=== PATIENT | male | born 1955 | race Caucasian/White ===

== ENCOUNTER 2016-10-02 01:10 | Inpatient (IN) | payer MEDICARE, MEDICAID ==
[~2016-10-02] VITALS: Ht 172.7 cm; Wt 79.4 kg
[2016-10-02] VITALS (7 sets, daily range): BP systolic 101–142; BP diastolic 53–77
[2016-10-02] MEDS ORDERED: ACETAMINOPHEN325 M1 ORAL (01:13)
[2016-10-02] MEDS ORDERED: DEPAKOTE ER250 MG ORAL (01:13)
[2016-10-02] MEDS ORDERED: DOCUSATE SODIU100 MG ORAL (01:13)
[2016-10-02] MEDS ORDERED: NORCO 5-325 TA1 EACH ORAL (01:39)
[2016-10-02] MEDS ORDERED: MULTIVITAMINS1 EA13 ORAL (01:39)
[2016-10-02] MEDS ORDERED: VITAMIN C500 M1 ORAL (01:39)
[2016-10-02] MEDS ORDERED: VOLTAREN100 G1 TP (01:39)
[2016-10-02] MEDS ORDERED: DULCOLAX10 MG RC (01:39)
[2016-10-02] MEDS ORDERED: FOLIC ACID1 MG ORAL (01:39)
[2016-10-02] MEDS ORDERED: MILK OF MA400 MG/51 ORAL (01:39)
[2016-10-02] MEDS ORDERED: TEMAZEPAM30 MG ORAL (01:39)
[2016-10-02] MEDS ORDERED: PROSCAR5 MG ORAL (01:39)
[2016-10-02] MEDS ORDERED: FERROUS SULFAT325 MG ORAL (01:39)
[2016-10-02] MEDS ORDERED: TAMSULOSIN HCL0.4 MG ORAL (01:39)
[2016-10-02] MEDS ORDERED: LORAZEPAM1 MG ORAL (01:39)
[2016-10-02] MEDS ORDERED: SEROQUEL25 MG ORAL (01:39)
[2016-10-02] MEDS ORDERED: LIDODERM700 M1 TOPIC (01:39)
[2016-10-02] MEDS ORDERED: CITRACAL D + H1 EACH PO (01:39)
[2016-10-02] MEDS ORDERED: MIRALAX17 G2 ORAL (01:39)
[2016-10-02] MEDS ORDERED: VITAMIN B-1100 MG ORAL (01:39)
[2016-10-02 01:57] LABS: APPEARANCE,URINE CLEAR; KETONES,URINE NEGATIVE (NEGATIVE); LEUKOCYTE ESTERASE ,URINE NEGATIVE (NEGATIVE); NITRITE,URINE NEGATIVE (NEGATIVE); PH,URINE 6.5 (4.5-8.0); PROTEIN,URINE NEGATIVE (NEGATIVE); UROBILINOGEN,URINE 1 MG/DL (0.0-1.0)
[2016-10-02 01:57] LABS: MEAN CORPUSCULAR HEMOGLOBIN 30.6 PG (27.0-31.0); MEAN CORPUSCULAR HGB CONC 34.6 G/DL (32.0-36.0); MEAN CORPUSCULAR VOLUME 88 FL (80-99); MEAN PLATELET VOLUME 6.2 FL (6.5-10.1); PLATELET COUNT 56 K/UL (150-450); RED BLOOD COUNT 4.81 M/UL (4.70-6.10); RED CELL DISTRIBUTION WIDTH 12.8 % (11.6-14.8); WHITE BLOOD COUNT 3.1 K/UL (4.8-10.8)
[2016-10-02 02:06] LABS: INR 1.4 (0.9-1.1); PROTHROMBIN TIME 14.9 SEC (9.30-11.50)
[2016-10-02 02:10] LABS: ALANINE AMINOTRANSFERASE 49 U/L (3-41); ALBUMIN/GLOBULIN RATIO 0.9 (1.0-2.7); ANION GAP 14 (5-15); ASPARTATE AMINO TRANSFERASE 74 U/L (5-40); CALCIUM 9.1 mg/dL (8.6-10.2); CARBON DIOXIDE 25 mEQ/L (20-30); CHLORIDE 100 mEQ/L (98-107); CREATININE 0.7 mg/dL (0.7-1.2); GLOMERULAR FILTRATION RATE > 60 mL/min (>60); HEMOLYSIS 5; LIPASE 30 U/L (< 60); SODIUM 139 mEQ/L (135-145); TOTAL PROTEIN 7.6 g/dL (6.6-8.7)
[2016-10-02 02:20] LABS: CKMB 1.7 ng/mL (< 6.7)
[2016-10-02 02:31] LABS: BILIRUBIN,DIRECT 0.4 mg/dL (0.1-0.3)
--- NOTE | 2016-10-02 03:18 | Emergency Room Report ---
History of Present Illness General Chief Complaint: Abnormal Labs Source: Medical Record Present Illness HPI Patient presents with complaints of general weakness Denies any fevers or chills Denies any chest pressures of breath He reports decreased oral intake mild epigastric discomfort as well Denies any vomiting but has some mild nausea denies any diarrhea Denies any chest pain or shortness of breath Allergies: Coded Allergies: No Known Allergies (Unverified , 10/02/16) Patient History Past Medical History: see triage record Pertinent Family History: none Reviewed Nursing Documentation: PMH: Agreed, PSxH: Agreed Nursing Documentation-PMH History Of Psychiatric Problem: Yes - alcoholism, schizophrenia, depression Review of Systems All Other Systems: negative except mentioned in HPI Physical Exam Vital Signs Date Time Temp Pulse Resp B/P Pulse Ox O2 Delivery O2 Flow Rate FiO2 10/02/16 01:02 97.7 60 14 142/77 100 Room Air Sp02 EP Interpretation: reviewed, normal General Appearance: well appearing, no apparent distress Head: normocephalic, atraumatic Eyes: bilateral eye EOMI, bilateral eye PERRL ENT: hearing grossly normal, TMs + canals normal, uvula midline, dry mucus membranes Neck: full range of motion, supple, no meningismus, no bony tend Respiratory: lungs clear, normal breath sounds, no rhonchi, no respiratory distress, no retraction, no accessory muscle use Cardiovascular #1: normal peripheral pulses, regular rate, rhythm, no edema, no gallop, no JVD, no murmur Gastrointestinal: normal bowel sounds, non tender, soft, no mass, no organomegaly, non-distended, no guarding, no hernia, no pulsatile mass, no rebound Genitourinary: no CVA tenderness Musculoskeletal: normal inspection Neurologic: oriented x3, responsive, yarn skeins examiner III-XII nml as tested, motor strength/ tone normal, sensory intact Psychiatric: mood/affect normal Skin: normal color, no rash, warm/dry, palpation normal Lymphatic: normal inspection, no adenopathy Medical Decision Making Diagnostic Impression: Primary Impression: Leukopenia Additional Impression: Elevated transaminase level ER Course Patient presents with multiple differentials Blood work reveals leukopenia along with abnormal liver function test patient is on multiple medications and requires further inpatient evaluation Labs Test 10/02/16 01:25 10/02/16 01:45 White Blood Count 3.1 K/UL (4.8-10.8) Red Blood Count 4.81 M/UL (4.70-6.10) Hemoglobin 14.7 G/DL (14.2-18.0) Hematocrit 42.5 % (42.0-52.0) Mean Corpuscular Volume 88 FL (80-99) Mean Corpuscular Hemoglobin 30.6 PG (27.0-31.0) Mean Corpuscular Hemoglobin Concent 34.6 G/DL (32.0-36.0) Red Cell Distribution Width 12.8 % (11.6-14.8) Platelet Count 56 K/UL (150-450) Mean Platelet Volume 6.2 FL (6.5-10.1) Neutrophils (%) (Auto) % (45.0-75.0) Lymphocytes (%) (Auto) % (20.0-45.0) Monocytes (%) (Auto) % (1.0-10.0) Eosinophils (%) (Auto) % (0.0-3.0) Basophils (%) (Auto) % (0.0-2.0) Prothrombin Time 14.9 SEC (9.30-11.50) Prothromb Time International Ratio 1.4 (0.9-1.1) Activated Partial Thromboplast Time 32 SEC (23-33) Sodium Level 139 mEQ/L (135-145) Potassium Level 4.0 mEQ/L (3.4-4.9) Chloride Level 100 mEQ/L (98-107) Carbon Dioxide Level 25 mEQ/L (20-30) Anion Gap 14 (5-15) Blood Urea Nitrogen 13 mg/dL (7-23) Creatinine 0.7 mg/dL (0.7-1.2) Estimat Glomerular Filtration Rate > 60 mL/min (>60) Glucose Level 88 mg/dL (74-106) Lactic Acid Level 1.90 mmol/L (0.66-2.22) Calcium Level 9.1 mg/dL (8.6-10.2) Total Bilirubin 1.7 mg/dL (0.0-1.2) Direct Bilirubin 0.4 mg/dL (0.1-0.3) Aspartate Amino Transf (AST/SGOT) 74 U/L (5-40) Alanine Aminotransferase (ALT/SGPT) 49 U/L (3-41) Alkaline Phosphatase 70 U/L (40-129) Total Creatine Kinase 66 U/L (38-174) Creatine Kinase MB 1.7 ng/mL (< 6.7) Creatine Kinase MB Relative Index 2.5 Total Protein 7.6 g/dL (6.6-8.7) Albumin 3.7 g/dL (3.5-5.2) Globulin 3.9 g/dL Albumin/Globulin Ratio 0.9 (1.0-2.7) Lipase 30 U/L (< 60) Urine Color Yellow Urine Appearance Clear Urine pH 6.5 (4.5-8.0) Urine Specific [place] 1.015 (1.005-1.035) Urine Protein Negative (NEGATIVE) Urine Glucose (UA) Negative (NEGATIVE) Urine Ketones Negative (NEGATIVE) Urine Occult Blood Negative (NEGATIVE) Urine Nitrite Negative (NEGATIVE) Urine Bilirubin Negative (NEGATIVE) Urine Urobilinogen 1 MG/DL (0.0-1.0) Urine Leukocyte Esterase Negative (NEGATIVE) Rhythm Strip Diag. Results EP Interpretation: yes Rate: 67 Rhythm: NSR, no PVC's, no ectopy Chest X-Ray Diagnostic Results EP Interpretation: Yes Findings: no consolidation, no effusion, no pneumothorax Number of Views: 1 Last Vital Signs Date Time Temp Pulse Resp B/P Pulse Ox O2 Delivery O2 Flow Rate FiO2 10/02/16 01:20 97.7 84 14 142/77 100 Room Air Status: improved Disposition: ADMITTED INPATIENT Condition: Serious Referrals: Andie Feliz MD (PCP) ANDIE OCONNELL D.O. Oct 02, 2016 03:18
[2016-10-02 07:45] LABS: MEAN CORPUSCULAR HEMOGLOBIN 30.5 PG (27.0-31.0); MEAN CORPUSCULAR HGB CONC 34.3 G/DL (32.0-36.0); MEAN CORPUSCULAR VOLUME 89 FL (80-99); MEAN PLATELET VOLUME 9.5 FL (6.5-10.1); PLATELET COUNT 50 K/UL (150-450); RED BLOOD COUNT 4.93 M/UL (4.70-6.10); RED CELL DISTRIBUTION WIDTH 13.1 % (11.6-14.8); WHITE BLOOD COUNT 2.9 K/UL (4.8-10.8)
[2016-10-02 08:05] LABS: ALANINE AMINOTRANSFERASE 51 U/L (3-41); ALBUMIN/GLOBULIN RATIO 0.9 (1.0-2.7); ANION GAP 14 (5-15); ASPARTATE AMINO TRANSFERASE 76 U/L (5-40); CALCIUM 8.9 mg/dL (8.6-10.2); CARBON DIOXIDE 23 mEQ/L (20-30); CHLORIDE 101 mEQ/L (98-107); CREATININE 0.6 mg/dL (0.7-1.2); GLOMERULAR FILTRATION RATE > 60 mL/min (>60); HEMOLYSIS 5; POTASSIUM 3.9 mEQ/L (3.4-4.9); SODIUM 138 mEQ/L (135-145); TOTAL PROTEIN 7.2 g/dL (6.6-8.7)
[2016-10-02 08:12] LABS: BASOPHILS % (MANUAL) 2 % (0-2); EOSINOPHILS % (MANUAL) 9 % (0-3); LYMPHOCYTES % (MANUAL) 40 % (20-45); NEUTROPHILS % (MANUAL) 36 % (45-75); TOTAL CELLS COUNTED 100
[2016-10-02 08:13] LABS: BAND NEUTROPHILS % (MANUAL) 0 % (0-8); PLATELET ESTIMATE DECREASED; PLATELET MORPHOLOGY NORMAL
[2016-10-02 08:18] LABS: BILIRUBIN,DIRECT 0.4 mg/dL (0.1-0.3)
--- NOTE | 2016-10-02 11:13 | Diagnostic Imaging Report ---
Indication: Chest pain Technique: One view of the chest Comparison: none Findings: The heart is borderline enlarged. Aorta is tortuous. Lungs and pleural spaces are clear. Impression: Borderline cardiomegaly. No acute process This agrees with the preliminary interpretation provided by the emergency room physician
--- NOTE | 2016-10-02 11:23 | GI Initial Consult Note ---
AubreeArchana Vangoi N.PDaniela 10/02/16 1123: History of Present Illness General Date patient seen: Oct 02, 2016 Time patient seen: 11:15 Reason for Hospitalization: Abnormal Labs Referring physician: PAMELA DHILLON Reason for Consultation: ABDOMINAL PAIN Present Illness HPI Patient presents with complaints of general weakness Denies any fevers or chills Denies any chest pressures of breath He reports decreased oral intake mild epigastric discomfort as well Denies any vomiting but has some mild nausea denies any diarrhea Denies any chest pain or shortness of breath GI CONSULT. HPI as noted above. GI consulted for abdominal pain and transaminitis. Pt seen on floor, awake A&Ox4 NAD with no active s/sx of N/V/D. C/o of occasional epigastrict pain and constipation no BM x 3 days. The stated his last colonoscopy was approximately 6 months ago with unremarkable results. He presents today with leukopenia and transaminitis. Lipase unremarkable. Home Meds Reported Medications Diclofenac Sodium (VOLTAREN) 100 Gm Gel..gram., 100 GM TP, GM 10/02/16 Ascorbic Acid* (VITAMIN C*) 500 Mg Tablet, 500 MG ORAL DAILY, #30 TAB 0 Refills 10/02/16 Thiamine Hcl* (VITAMIN B-1*) 100 Mg Tablet, 100 MG ORAL DAILY, #30 TAB 0 Refills 10/02/16 Temazepam* (TEMAZEPAM*) 30 Mg Capsule, 15 MG ORAL BEDTIME Y for Insomnia, CAP 10/02/16 Quetiapine Fumarate* (SEROQUEL*) 25 Mg Tablet, 50 MG ORAL BEDTIME, TAB 10/02/16 Finasteride* (PROSCAR*) 5 Mg Tablet, 5 MG ORAL DAILY, #30 TAB 0 Refills 10/02/16 Calcium Carb&Cit/D3/Phytostrol (CITRACAL D + HEART HEALTH TAB) 1 Each Tablet, 1 EACH PO, TAB 10/02/16 Hydrocodone Bit/Acetaminophen 5-325* (NORCO 5-325*) 1 Each Tablet, 1 TAB ORAL Q4H Y for For Pain, TAB 0 Refills 10/02/16 Multivitamin with Minerals (Multivitamins with Minerals) 1 Each Tablet, 1 TAB ORAL DAILY, TAB 10/02/16 Polyethylene Glycol 3350* (MIRALAX*) 17 Gm Powd.pack, 17 GM ORAL DAILY, PACKET 10/02/16 Magnesium Hydroxide* (MILK OF MAGNESIA*) 400 Mg/5 Ml Oral.susp, 30 ML ORAL DAILY , ML 10/02/16 Lorazepam* (LORAZEPAM*) 1 Mg Tablet, 1 MG ORAL THREE TIMES A DAY, TAB 10/02/16 Lidocaine (Lidoderm) 1 Each Adh..patch, 1 PATCH TOPIC, #7 PATCH 0 Refills Patch(es) may remain in place for up to 12 hours in any 24-hour period. 10/02/16 Folic Acid* (FOLIC ACID*) 1 Mg Tablet, 1 MG ORAL DAILY, TAB 10/02/16 Tamsulosin Hcl (TAMSULOSIN HCL*) 0.4 Mg Cap.er.24h, 0.4 MG ORAL BEDTIME, CAP 10/02/16 Ferrous Sulfate* (FERROUS SULFATE*) 325 Mg Tablet, 325 MG ORAL TWICE A DAY, #60 TAB 0 Refills 10/02/16 Bisacodyl (DULCOLAX) 10 Mg Supp.rect, 10 MG RC, SUPP 10/02/16 Docusate Sodium* (DOCUSATE SODIUM*) 100 Mg Capsule, 100 MG ORAL TWICE A DAY, CAP 10/02/16 Divalproex Sodium* (DEPAKOTE ER*) 250 Mg Tab.er.24h, 250 MG ORAL EVERY 12 HOURS , TAB 10/02/16 Acetaminophen* (ACETAMINOPHEN 325MG TABLET*) 325 Mg Tablet, 650 MG ORAL Q6H Y for Mild Pain (Pain Scale 1-3), TAB 10/02/16 Med list reviewed/reconciled: Yes Allergies: Coded Allergies: No Known Allergies (Unverified , 10/02/16) Patient History History Provided By: Patient, Medical Record [facility] Narrative History Of Psychiatric Problem: Yes - alcoholism, schizophrenia, depression Social History: Reports: alcohol use - been sober for 3 months, ETOH abuse Review of Systems All Other Systems: negative except mentioned in HPI Physical Exam Vital Signs Date Time Temp Pulse Resp B/P Pulse Ox O2 Delivery O2 Flow Rate FiO2 10/02/16 01:02 97.7 60 14 142/77 100 Room Air Sp02 EP Interpretation: reviewed Labs Laboratory Tests Test 10/02/16 01:25 10/02/16 01:45 10/02/16 07:25 White Blood Count 3.1 K/UL (4.8-10.8) L 2.9 K/UL (4.8-10.8) L Red Blood Count 4.81 M/UL (4.70-6.10) 4.93 M/UL (4.70-6.10) Hemoglobin 14.7 G/DL (14.2-18.0) 15.0 G/DL (14.2-18.0) Hematocrit 42.5 % (42.0-52.0) 43.8 % (42.0-52.0) Mean Corpuscular Volume 88 FL (80-99) 89 FL (80-99) Mean Corpuscular Hemoglobin 30.6 PG (27.0-31.0) 30.5 PG (27.0-31.0) Mean Corpuscular Hemoglobin Concent 34.6 G/DL (32.0-36.0) 34.3 G/DL (32.0-36.0) Red Cell Distribution Width 12.8 % (11.6-14.8) 13.1 % (11.6-14.8) Platelet Count 56 K/UL (150-450) L 50 K/UL (150-450) L Mean Platelet Volume 6.2 FL (6.5-10.1) L 9.5 FL (6.5-10.1) Neutrophils (%) (Auto) % (45.0-75.0) % (45.0-75.0) Lymphocytes (%) (Auto) % (20.0-45.0) % (20.0-45.0) Monocytes (%) (Auto) % (1.0-10.0) % (1.0-10.0) Eosinophils (%) (Auto) % (0.0-3.0) % (0.0-3.0) Basophils (%) (Auto) % (0.0-2.0) % (0.0-2.0) Prothrombin Time 14.9 SEC (9.30-11.50) H Prothromb Time International Ratio 1.4 (0.9-1.1) H Activated Partial Thromboplast Time 32 SEC (23-33) Sodium Level 139 mEQ/L (135-145) 138 mEQ/L (135-145) Potassium Level 4.0 mEQ/L (3.4-4.9) 3.9 mEQ/L (3.4-4.9) Chloride Level 100 mEQ/L (98-107) 101 mEQ/L (98-107) Carbon Dioxide Level 25 mEQ/L (20-30) 23 mEQ/L (20-30) Anion Gap 14 (5-15) 14 (5-15) Blood Urea Nitrogen 13 mg/dL (7-23) 13 mg/dL (7-23) Creatinine 0.7 mg/dL (0.7-1.2) 0.6 mg/dL (0.7-1.2) L Estimat Glomerular Filtration Rate > 60 mL/min (>60) > 60 mL/min (>60) Glucose Level 88 mg/dL (74-106) 106 mg/dL (74-106) Lactic Acid Level 1.90 mmol/L (0.66-2.22) Calcium Level 9.1 mg/dL (8.6-10.2) 8.9 mg/dL (8.6-10.2) Total Bilirubin 1.7 mg/dL (0.0-1.2) H 2.2 mg/dL (0.0-1.2) H Direct Bilirubin 0.4 mg/dL (0.1-0.3) H 0.4 mg/dL (0.1-0.3) H Aspartate Amino Transf (AST/SGOT) 74 U/L (5-40) H 76 U/L (5-40) H Alanine Aminotransferase (ALT/SGPT) 49 U/L (3-41) H 51 U/L (3-41) H Alkaline Phosphatase 70 U/L (40-129) 64 U/L (40-129) Total Creatine Kinase 66 U/L (38-174) Creatine Kinase MB 1.7 ng/mL (< 6.7) Creatine Kinase MB Relative Index 2.5 Total Protein 7.6 g/dL (6.6-8.7) 7.2 g/dL (6.6-8.7) Albumin 3.7 g/dL (3.5-5.2) 3.5 g/dL (3.5-5.2) Globulin 3.9 g/dL 3.7 g/dL Albumin/Globulin Ratio 0.9 (1.0-2.7) L 0.9 (1.0-2.7) L Lipase 30 U/L (< 60) Urine Color Yellow Urine Appearance Clear Urine pH 6.5 (4.5-8.0) Urine Specific [place] 1.015 (1.005-1.035) Urine Protein Negative (NEGATIVE) Urine Glucose (UA) Negative (NEGATIVE) Urine Ketones Negative (NEGATIVE) Urine Occult Blood Negative (NEGATIVE) Urine Nitrite Negative (NEGATIVE) Urine Bilirubin Negative (NEGATIVE) Urine Urobilinogen 1 MG/DL (0.0-1.0) H Urine Leukocyte Esterase Negative (NEGATIVE) Differential Total Cells Counted 100 Neutrophils % (Manual) 36 % (45-75) L Lymphocytes % (Manual) 40 % (20-45) Monocytes % (Manual) 13 % (1-10) H Eosinophils % (Manual) 9 % (0-3) H Basophils % (Manual) 2 % (0-2) Band Neutrophils 0 % (0-8) Platelet Estimate Decreased L Platelet Morphology Normal Red Blood Cell Morphology Normal General Appearance: well appearing, no apparent distress, alert Head: normocephalic EENT: normal ENT inspection Neck: supple Respiratory: normal breath sounds, no respiratory distress Cardiovascular: normal rate Gastrointestinal: soft, normal bowel sounds, tenderness - generalized Rectal: deferred Genitourinary: no CVA tenderness Musculoskeletal: back normal Neurologic: normal inspection, alert, oriented x3, responsive Psychiatric: normal inspection, judgement/insight normal Skin: normal inspection, normal color, no rash, warm/dry, palpation normal Lymphatic: normal inspection, no adenopathy Current Medications Current Medications Medications (Trade) Dose Ordered Sig/[place] Route PRN Reason Start Time Stop Time Status Last Admin Dose Admin Acetaminophen (Tylenol) 650 mg Q4H PRN ORAL Mild Pain/Temp > 100.5 10/02/16 03:30 11/01/16 03:29 Tbo-Filgrastim (Granix) 300 mcg ONCE ONCE SQ 10/02/16 12:30 10/02/16 12:31 GI: Plan Problems: (1) History of ETOH abuse (2) Elevated transaminase level (3) Leukopenia Plan ordered abdominal U/S repeat LFTs monitor H&H, transfuse prn bowel regime >> colace + miralax regular diet ppi fu hep panel fu labs Discussed with Dr. Rodriguez. Thank you for referring this patient, we will follow. RADHA RODRIGUEZ 10/03/16 1153: History of Present Illness General Reason for Hospitalization: Abnormal Labs Present Illness Home Meds Reported Medications Diclofenac Sodium (VOLTAREN) 100 Gm Gel..gram., 100 GM TP, GM 10/02/16 Ascorbic Acid* (VITAMIN C*) 500 Mg Tablet, 500 MG ORAL DAILY, #30 TAB 0 Refills 10/02/16 Thiamine Hcl* (VITAMIN B-1*) 100 Mg Tablet, 100 MG ORAL DAILY, #30 TAB 0 Refills 10/02/16 Temazepam* (TEMAZEPAM*) 30 Mg Capsule, 15 MG ORAL BEDTIME Y for Insomnia, CAP 10/02/16 Quetiapine Fumarate* (SEROQUEL*) 25 Mg Tablet, 50 MG ORAL BEDTIME, TAB 10/02/16 Finasteride* (PROSCAR*) 5 Mg Tablet, 5 MG ORAL DAILY, #30 TAB 0 Refills 10/02/16 Calcium Carb&Cit/D3/Phytostrol (CITRACAL D + HEART HEALTH TAB) 1 Each Tablet, 1 EACH PO, TAB 10/02/16 Hydrocodone Bit/Acetaminophen 5-325* (NORCO 5-325*) 1 Each Tablet, 1 TAB ORAL Q4H Y for For Pain, TAB 0 Refills 10/02/16 Multivitamin with Minerals (Multivitamins with Minerals) 1 Each Tablet, 1 TAB ORAL DAILY, TAB 10/02/16 Polyethylene Glycol 3350* (MIRALAX*) 17 Gm Powd.pack, 17 GM ORAL DAILY, PACKET 10/02/16 Magnesium Hydroxide* (MILK OF MAGNESIA*) 400 Mg/5 Ml Oral.susp, 30 ML ORAL DAILY , ML 10/02/16 Lorazepam* (LORAZEPAM*) 1 Mg Tablet, 1 MG ORAL THREE TIMES A DAY, TAB 10/02/16 Lidocaine (Lidoderm) 1 Each Adh..patch, 1 PATCH TOPIC, #7 PATCH 0 Refills Patch(es) may remain in place for up to 12 hours in any 24-hour period. 10/02/16 Folic Acid* (FOLIC ACID*) 1 Mg Tablet, 1 MG ORAL DAILY, TAB 10/02/16 Tamsulosin Hcl (TAMSULOSIN HCL*) 0.4 Mg Cap.er.24h, 0.4 MG ORAL BEDTIME, CAP 10/02/16 Ferrous Sulfate* (FERROUS SULFATE*) 325 Mg Tablet, 325 MG ORAL TWICE A DAY, #60 TAB 0 Refills 10/02/16 Bisacodyl (DULCOLAX) 10 Mg Supp.rect, 10 MG RC, SUPP 10/02/16 Docusate Sodium* (DOCUSATE SODIUM*) 100 Mg Capsule, 100 MG ORAL TWICE A DAY, CAP 10/02/16 Divalproex Sodium* (DEPAKOTE ER*) 250 Mg Tab.er.24h, 250 MG ORAL EVERY 12 HOURS , TAB 10/02/16 Acetaminophen* (ACETAMINOPHEN 325MG TABLET*) 325 Mg Tablet, 650 MG ORAL Q6H Y for Mild Pain (Pain Scale 1-3), TAB 10/02/16 Allergies: Coded Allergies: No Known Allergies (Unverified , 10/02/16) GI: Plan Plan The patient was seen and examined at bedside and all new and available data was reviewed in the patients chart. I agree with the above findings, impression and plan. (Patient seen earlier today. Signature stamp does not reflect patient encounter time.). -Angelia Singer MDh Rip Benedict Oct 02, 2016 11:23 RADHA RODRIGUEZ Oct 03, 2016 11:53
[2016-10-02] MEDS ORDERED: TBO-Filgrastim 300 mcg/0.5ml SQ ONE (12:30)
[2016-10-02] MEDS: Docusate 100mg cap ORAL SCH (18:01)
[2016-10-02] MEDS: Miralax 17gm pkt ORAL SCH (21:24)
--- NOTE | 2016-10-02 22:57 | Consultation ---
Consult Note Consult Note Heme Consult DOS: 10/02/16 REQ MD: Trini [facility]: Leukopenia eval HPI 60 y old male has been admitted in the past to PSYCHIATRIC (04/2016 and 07/2016) hx of splenomegaly, cirrhosis, has leukopenia and thrombocytopenia history due to hepatitis C, presents with complaints of general weakness, he denies any fevers or chills, denies any chest pressures of breath, he reports decreased oral intake mild epigastric discomfort as well, denies any vomiting but has some mild nausea denies any diarrhea, denies any chest pain or shortness of breath, had a colo 6 mo ago, unremarkable. Home Meds Diclofenac Sodium (VOLTAREN) 100 Gm Gel..gram., 100 GM TP, GM Ascorbic Acid* (VITAMIN C*) 500 Mg Tablet, 500 MG ORAL DAILY, #30 TAB 0 Refills Thiamine Hcl* (VITAMIN B-1*) 100 Mg Tablet, 100 MG ORAL DAILY, #30 TAB 0 Refills Temazepam* (TEMAZEPAM*) 30 Mg Capsule, 15 MG ORAL BEDTIME Y for Insomnia, CAP Quetiapine Fumarate* (SEROQUEL*) 25 Mg Tablet, 50 MG ORAL BEDTIME, TAB Finasteride* (PROSCAR*) 5 Mg Tablet, 5 MG ORAL DAILY, #30 TAB 0 Refills Calcium Carb&Cit/D3/Phytostrol (CITRACAL D + HEART HEALTH TAB) 1 Each Tablet, 1 EACH PO, TAB Hydrocodone Bit/Acetaminophen 5-325* (NORCO 5-325*) 1 Each Tablet, 1 TAB ORAL Q4H Y for For Pain, TAB 0 Refills Multivitamin with Minerals (Multivitamins with Minerals) 1 Each Tablet, 1 TAB ORAL DAILY, TAB Polyethylene Glycol 3350* (MIRALAX*) 17 Gm Powd.pack, 17 GM ORAL DAILY, PACKET Magnesium Hydroxide* (MILK OF MAGNESIA*) 400 Mg/5 Ml Oral.susp, 30 ML ORAL DAILY , ML Lorazepam* (LORAZEPAM*) 1 Mg Tablet, 1 MG ORAL THREE TIMES A DAY, TAB Lidocaine (Lidoderm) 1 Each Adh..patch, 1 PATCH TOPIC, #7 PATCH 0 Refills Folic Acid* (FOLIC ACID*) 1 Mg Tablet, 1 MG ORAL DAILY, TAB Tamsulosin Hcl (TAMSULOSIN HCL*) 0.4 Mg Cap.er.24h, 0.4 MG ORAL BEDTIME, CAP Ferrous Sulfate* (FERROUS SULFATE*) 325 Mg Tablet, 325 MG ORAL TWICE A DAY, #60 TAB 0 Refills Bisacodyl (DULCOLAX) 10 Mg Supp.rect, 10 MG RC, SUPP Docusate Sodium* (DOCUSATE SODIUM*) 100 Mg Capsule, 100 MG ORAL TWICE A DAY, CAP Divalproex Sodium* (DEPAKOTE ER*) 250 Mg Tab.er.24h, 250 MG ORAL EVERY 12 HOURS , TAB Acetaminophen* (ACETAMINOPHEN 325MG TABLET*) 325 Mg Tablet, 650 MG ORAL Q6H Y for Mild Pain (Pain Scale 1-3), TAB Allergies: No Known Allergies (Unverified , 10/02/16) PMH Narrative Psychiatric Problem: Yes - alcoholism, schizophrenia, depression Social History: Reports: alcohol use - been sober for 3 months, ETOH abuse ROS: Constitutional: No fever, no chills, no night sweats, no fatigue Skin: No rashes, lumps, itchiness, dryness HEENT: No [place], ear ache, visual changes, double vision, nosebleeds, sore throat, lumps, swollen glands Breasts: No lumps, pain, discharge Pulmonary: No cough, sputum, shortness of breath, coughing up blood, hemoptysis Cardiovascular: No chest pain, tightness, palpitations, syncope, claudication, orthopnea, PND GI: No nausea, vomiting, diarrhea, melena, hematochezia, change in appetite, abdominal pain : No dysuria, frequency, urgency, urinary incontinence, foamy urine Musculoskeletal: No joint swelling or muscle pain, trauma, back pain Neurologic: No dizziness, fainting, seizures, changes in smell or taste Psychiatric: No nervousness, stress, or depression, anxiety, hallucinations PE: Vitals: stable, are wnl General Appearance: A+O x3, NAD Skin: no rashes, itching HEENT: normocephalic, atraumatic Respiratory/Chest: chest wall non-tender, lungs clear Cardiovascular/Chest: normal peripheral pulses, normal rate Abdomen: normal bowel sounds, non tender Ext: no cce Test 10/02/16 01:25 10/02/16 01:45 10/02/16 07:25 White Blood Count 3.1 K/UL (4.8-10.8) L 2.9 K/UL (4.8-10.8) L Red Blood Count 4.81 M/UL (4.70-6.10) 4.93 M/UL (4.70-6.10) Hemoglobin 14.7 G/DL (14.2-18.0) 15.0 G/DL (14.2-18.0) Hematocrit 42.5 % (42.0-52.0) 43.8 % (42.0-52.0) Mean Corpuscular Volume 88 FL (80-99) 89 FL (80-99) Mean Corpuscular Hemoglobin 30.6 PG (27.0-31.0) 30.5 PG (27.0-31.0) Mean Corpuscular Hemoglobin Concent 34.6 G/DL (32.0-36.0) 34.3 G/DL (32.0-36.0) Red Cell Distribution Width 12.8 % (11.6-14.8) 13.1 % (11.6-14.8) Platelet Count 56 K/UL (150-450) L 50 K/UL (150-450) L Mean Platelet Volume 6.2 FL (6.5-10.1) L 9.5 FL (6.5-10.1) Neutrophils (%) (Auto) % (45.0-75.0) % (45.0-75.0) Lymphocytes (%) (Auto) % (20.0-45.0) % (20.0-45.0) Monocytes (%) (Auto) % (1.0-10.0) % (1.0-10.0) Eosinophils (%) (Auto) % (0.0-3.0) % (0.0-3.0) Basophils (%) (Auto) % (0.0-2.0) % (0.0-2.0) Prothrombin Time 14.9 SEC (9.30-11.50) H Prothromb Time International Ratio 1.4 (0.9-1.1) H Activated Partial Thromboplast Time 32 SEC (23-33) Sodium Level 139 mEQ/L (135-145) 138 mEQ/L (135-145) Potassium Level 4.0 mEQ/L (3.4-4.9) 3.9 mEQ/L (3.4-4.9) Chloride Level 100 mEQ/L (98-107) 101 mEQ/L (98-107) Carbon Dioxide Level 25 mEQ/L (20-30) 23 mEQ/L (20-30) Anion Gap 14 (5-15) 14 (5-15) Blood Urea Nitrogen 13 mg/dL (7-23) 13 mg/dL (7-23) Creatinine 0.7 mg/dL (0.7-1.2) 0.6 mg/dL (0.7-1.2) L Estimat Glomerular Filtration Rate > 60 mL/min (>60) > 60 mL/min (>60) Glucose Level 88 mg/dL (74-106) 106 mg/dL (74-106) Lactic Acid Level 1.90 mmol/L (0.66-2.22) Calcium Level 9.1 mg/dL (8.6-10.2) 8.9 mg/dL (8.6-10.2) Total Bilirubin 1.7 mg/dL (0.0-1.2) H 2.2 mg/dL (0.0-1.2) H Direct Bilirubin 0.4 mg/dL (0.1-0.3) H 0.4 mg/dL (0.1-0.3) H Aspartate Amino Transf (AST/SGOT) 74 U/L (5-40) H 76 U/L (5-40) H Alanine Aminotransferase (ALT/SGPT) 49 U/L (3-41) H 51 U/L (3-41) H Alkaline Phosphatase 70 U/L (40-129) 64 U/L (40-129) Total Creatine Kinase 66 U/L (38-174) Creatine Kinase MB 1.7 ng/mL (< 6.7) Creatine Kinase MB Relative Index 2.5 Total Protein 7.6 g/dL (6.6-8.7) 7.2 g/dL (6.6-8.7) Albumin 3.7 g/dL (3.5-5.2) 3.5 g/dL (3.5-5.2) Globulin 3.9 g/dL 3.7 g/dL Albumin/Globulin Ratio 0.9 (1.0-2.7) L 0.9 (1.0-2.7) L Lipase 30 U/L (< 60) Urine Color Yellow Urine Appearance Clear Urine pH 6.5 (4.5-8.0) Urine Specific [place] 1.015 (1.005-1.035) Urine Protein Negative (NEGATIVE) Urine Glucose (UA) Negative (NEGATIVE) Urine Ketones Negative (NEGATIVE) Urine Occult Blood Negative (NEGATIVE) Urine Nitrite Negative (NEGATIVE) Urine Bilirubin Negative (NEGATIVE) Urine Urobilinogen 1 MG/DL (0.0-1.0) H Urine Leukocyte Esterase Negative (NEGATIVE) Differential Total Cells Counted 100 Neutrophils % (Manual) 36 % (45-75) L Lymphocytes % (Manual) 40 % (20-45) Monocytes % (Manual) 13 % (1-10) H Eosinophils % (Manual) 9 % (0-3) H Basophils % (Manual) 2 % (0-2) Band Neutrophils 0 % (0-8) Platelet Estimate Decreased L Platelet Morphology Normal Red Blood Cell Morphology Normal Current Medications Medications (Trade) Dose Ordered Sig/[place]hal Route PRN Reason Start Time Stop Time Status Last Admin Dose Admin Acetaminophen (Tylenol) 650 mg Q4H PRN ORAL Mild Pain/Temp > 100.5 10/02/16 03:30 11/01/16 03:29 Tbo-Filgrastim (Granix) 300 mcg ONCE ONCE SQ 10/02/16 12:30 10/02/16 12:31 Assessment/Recs: # 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
--- NOTE | 2016-10-02 23:01 | History and Physical Report ---
DATE OF ADMISSION: 10/02/2016 HISTORY OF PRESENT ILLNESS: The patient is seen for elevated lipids, leukopenia, elevated transaminase. The patient is a poor historian. The patient denies any bleeding. Denies nausea, vomiting, or diarrhea. No fever or chills. No abdominal pain. Denies shortness of breath. Denies cough. Denies orthopnea or hemoptysis. PAST MEDICAL HISTORY: Psychosis, GERD, constipation, BPH, and chronic renal syndrome. PAST SURGICAL HISTORY: Denies. MEDICATIONS: Vitamin C, Tylenol, Depakote, Colace, ferrous sulfate, finasteride, folic acid, lorazepam, polyethylene glycol, Seroquel, Flomax, and thiamine. ALLERGIES: No known allergies. SOCIAL HISTORY: The patient does have history of smoking and history of alcohol use. REVIEW OF SYSTEMS: HEENT: Denies headaches. Respiratory: Denies shortness of breath. Denies cough. Cardiovascular: Denies chest pain. GI: Denies nausea, vomiting, or diarrhea. Extremities: Does have chronic pain. ORDER DISPATCHER CHIEF: Denies change in vision or speech pattern. PHYSICAL EXAMINATION: VITAL SIGNS: Temperature is 97.7 degrees, pulse 84, and blood pressure 132/77. HEENT: PERRLA. NECK: Supple. No lymphadenopathy. CHEST: Clear to auscultation. GI: Soft, nontender, and nondistended. No organomegaly. EXTREMITIES: No edema. Moves all four extremities. NEUROLOGIC: Sensation intact to light touch. Reflexes are equal on both sides. Oriented x1. LABORATORY DATA: WBC of 3.1, hemoglobin of 13.2, and platelets of 56,000. Sodium 139, potassium 4, BUN of 13, and creatinine of 0.7. Glucose of 88. AST of 74 and ALT of 49. Total bilirubin 1.7. ASSESSMENT: 1. Leukopenia. 2. Thrombocytopenia. 3. Transaminase elevation. 4. Psychiatric patient. PLAN: I have asked Dr. Godinez, Dr. Whalen, Dr. Ingram, and Dr. Edwards to see the patient for the above-mentioned diagnoses and treatment. Andie Feliz M.D. DR: MONIQUE JOB#: [id number] CC:
[2016-10-03] VITALS: BP 118/74
--- NOTE | 2016-10-03 | Consultation ---
DATE OF CONSULTATION: 10/02/2016 HISTORY OF PRESENT ILLNESS: This is a 60-year-old male with a history of multiple medical problems, including leukopenia, history of alcohol abuse and elevated transaminase level, who has been admitted to the hospital. The patient was admitted to the ER with chief complaints of general weakness, fatigued, decreased appetite and mild epigastric pain. The patient also has a history of depression who has been treated with Seroquel as well as anxiolytics and mood stabilizer. During the evaluation, the patient endorses anxiety, decreased energy, depressed mood, anhedonia, and worthlessness. PAST PSYCHIATRIC HISTORY: Diagnosed with depression, anxiety and mood disorder. PAST MEDICAL HISTORY: Significant for leukopenia and abnormal liver enzymes. ALLERGIES: No known drug allergies. SUBSTANCE ABUSE HISTORY: Significant for alcohol possible use. MENTAL STATUS EXAMINATION: The patient is alert and oriented x4. Mood is depressed. Affect is constricted. Thought process is concrete. Thought content, no suicidal or homicidal ideation. ASSESSMENT: 1. Mood disorder, not otherwise specified. 2. Alcohol dependence. 3. Alcohol withdrawal. PLAN: 1. We will start the patient on thiamine. 2. Folic acid. 3. We will start the patient on Valium as needed. 4. We will start the patient on Seroquel and fluoxetine. Ania Edwards M.D. DR: DAYSI JOB#: [id number] CC:
[2016-10-03 04:00] VITALS: BP 123/74
[2016-10-03 07:06] LABS: MEAN CORPUSCULAR HEMOGLOBIN 31.4 PG (27.0-31.0); MEAN CORPUSCULAR HGB CONC 35.4 G/DL (32.0-36.0); MEAN CORPUSCULAR VOLUME 89 FL (80-99); MEAN PLATELET VOLUME 7.9 FL (6.5-10.1); PLATELET COUNT 45 K/UL (150-450); RED BLOOD COUNT 4.37 M/UL (4.70-6.10); RED CELL DISTRIBUTION WIDTH 12.9 % (11.6-14.8)
[2016-10-03 07:14] LABS: ALANINE AMINOTRANSFERASE 45 U/L (3-41); ALBUMIN/GLOBULIN RATIO 0.9 (1.0-2.7); ANION GAP 15 (5-15); ASPARTATE AMINO TRANSFERASE 66 U/L (5-40); CALCIUM 8.8 mg/dL (8.6-10.2); CARBON DIOXIDE 23 mEQ/L (20-30); CHLORIDE 101 mEQ/L (98-107); CREATININE 0.6 mg/dL (0.7-1.2); GLOMERULAR FILTRATION RATE > 60 mL/min (>60); HEMOLYSIS 4; POTASSIUM 3.7 mEQ/L (3.4-4.9); SODIUM 139 mEQ/L (135-145)
[2016-10-03 07:32] LABS: BILIRUBIN,DIRECT 0.3 mg/dL (0.1-0.3)
[2016-10-03 07:53] LABS: BAND NEUTROPHILS % (MANUAL) 3 % (0-8); BASOPHILS % (MANUAL) 0 % (0-2); EOSINOPHILS % (MANUAL) 2 % (0-3); LYMPHOCYTES % (MANUAL) 13 % (20-45); NEUTROPHILS % (MANUAL) 72 % (45-75); PLATELET ESTIMATE DECREASED; PLATELET MORPHOLOGY NORMAL; TOTAL CELLS COUNTED 100
[2016-10-03 08:02] VITALS: BP 139/85
[2016-10-03] MEDS: Docusate 100mg cap ORAL SCH ×2 (08:13→17:29)
[2016-10-03] MEDS: Pantoprazole Inj IVP SCH (08:14)
--- NOTE | 2016-10-03 09:44 | Diagnostic Imaging Report ---
Indication: Abnormal liver function tests and renal function tests. Elevated lipase Technique: Baker-scale and duplex images of the upper abdomen were obtained Comparison: None Findings: Gallbladder demonstrates gallstones. No gallbladder wall thickening or pericholecystic fluid . Sonographic Garay's sign is negative. Common bile duct measures 4 mm in diameter. No intrahepatic biliary ductal dilatation. Liver demonstrates increased and coarsened echogenicity. It also demonstrates surface nodularity and irregularity. A few small cysts are seen within the right hepatic lobe. Portal vein and hepatic veins are patent. Pancreas is obscured by bowel gas. The spleen is enlarged, measuring 16 cm long axis dimension Left kidney measures 13 cm in length. Right kidney measures 10.5 cm length. Both kidneys demonstrate normal echogenicity. There is no hydronephrosis. There is a 12 mm lower pole cysts. There also appears to be a calcification within the lower pole renal sinus measuring approximately 9 mm diameter. Abdominal aorta is partially obscured by bowel gas, visualized portions are non-aneurysmal . Impression: Cholelithiasis. Negative for dilated ducts Coarsened hepatic echogenicity, surface irregularity and nodularity, consistent with cirrhosis Splenomegaly, suspect portal hypertension as etiology Incidental finding small hepatic cysts Probable nonobstructive left lower pole intrarenal calculus Incidental finding small left renal cyst Note inability to visualize the pancreas and distal abdominal aorta
--- NOTE | 2016-10-03 10:19 | GI Progress Note ---
Assessment/Plan Problems: (1) Elevated transaminase level ICD Codes: R74.0 - Nonspecific elevation of levels of transaminase and lactic acid dehydrogenase [LDH] SNOMED: 021893636, 129167640 (2) Leukopenia ICD Codes: D72.819 - Decreased white blood cell count, unspecified SNOMED: 64062428, 446667914 (3) History of ETOH abuse ICD Codes: Z87.898 - Personal history of other specified conditions SNOMED: 155781363 Status: stable, unchanged Status Narrative Discussed with Dr. Ingram. Assessment/Plan regular diet monitor H&H, transfuse prn bowel regime >> colace + miralax, dulcolax prn ppi fu abdominal U/S fu hep panel fu labs Subjective Gastrointestinal/Abdominal: Reports: no symptoms Objective Last 24 Hour Vital Signs Date Time Temp Pulse Resp B/P Pulse Ox O2 Delivery O2 Flow Rate FiO2 10/03/16 08:02 97.0 74 16 139/85 98 Room Air 10/03/16 04:00 97.9 73 18 123/74 94 Room Air 10/03/16 00:00 98.0 83 18 118/74 96 Room Air 10/02/16 22:24 97.9 10/02/16 22:21 Room Air 10/02/16 20:00 97.9 82 18 120/76 96 Room Air 10/02/16 15:31 97.9 61 19 124/71 95 Room Air 10/02/16 11:19 97.5 67 18 101/53 97 Room Air Intake and Output 10/02/16 10/03/16 19:00 07:00 Intake Total 600 ml Balance 600 ml Intake Oral 600 ml # Voids 6 # Bowel Movements 1 Laboratory Tests Test 10/03/16 04:50 White Blood Count 14.0 K/UL (4.8-10.8) #H Red Blood Count 4.37 M/UL (4.70-6.10) L Hemoglobin 13.7 G/DL (14.2-18.0) L Hematocrit 38.9 % (42.0-52.0) L Mean Corpuscular Volume 89 FL (80-99) Mean Corpuscular Hemoglobin 31.4 PG (27.0-31.0) H Mean Corpuscular Hemoglobin Concent 35.4 G/DL (32.0-36.0) Red Cell Distribution Width 12.9 % (11.6-14.8) Platelet Count 45 K/UL (150-450) L Mean Platelet Volume 7.9 FL (6.5-10.1) Neutrophils (%) (Auto) % (45.0-75.0) Lymphocytes (%) (Auto) % (20.0-45.0) Monocytes (%) (Auto) % (1.0-10.0) Eosinophils (%) (Auto) % (0.0-3.0) Basophils (%) (Auto) % (0.0-2.0) Differential Total Cells Counted 100 Neutrophils % (Manual) 72 % (45-75) Lymphocytes % (Manual) 13 % (20-45) L Monocytes % (Manual) 10 % (1-10) Eosinophils % (Manual) 2 % (0-3) Basophils % (Manual) 0 % (0-2) Band Neutrophils 3 % (0-8) Platelet Estimate Decreased L Platelet Morphology Normal Red Blood Cell Morphology Normal Sodium Level 139 mEQ/L (135-145) Potassium Level 3.7 mEQ/L (3.4-4.9) Chloride Level 101 mEQ/L (98-107) Carbon Dioxide Level 23 mEQ/L (20-30) Anion Gap 15 (5-15) Blood Urea Nitrogen 16 mg/dL (7-23) Creatinine 0.6 mg/dL (0.7-1.2) L Estimat Glomerular Filtration Rate > 60 mL/min (>60) Glucose Level 68 mg/dL (74-106) L Calcium Level 8.8 mg/dL (8.6-10.2) Total Bilirubin 2.8 mg/dL (0.0-1.2) H Direct Bilirubin 0.3 mg/dL (0.1-0.3) Aspartate Amino Transf (AST/SGOT) 66 U/L (5-40) H Alanine Aminotransferase (ALT/SGPT) 45 U/L (3-41) H Alkaline Phosphatase 66 U/L (40-129) Total Protein 7.0 g/dL (6.6-8.7) Albumin 3.4 g/dL (3.5-5.2) L Globulin 3.6 g/dL Albumin/Globulin Ratio 0.9 (1.0-2.7) L Hepatitis A IgM Antibody Pending Hepatitis B Surface Antigen Pending Hepatitis B Core IgM Antibody Pending Hepatitis C Antibody Pending Height (Feet): 5 Height (Inches): 8.00 Weight (Pounds): 175 General Appearance: no apparent distress, alert Cardiovascular: normal rate Respiratory/Chest: normal breath sounds, no respiratory distress Abdominal Exam: normal bowel sounds, non tender, soft Archana Mak N.P. Oct 03, 2016 10:19
[2016-10-03 11:36] VITALS: BP 126/77
[2016-10-03 15:49] VITALS: BP 106/61
[2016-10-03 20:00] VITALS: BP 108/62
[2016-10-03] MEDS: Miralax 17gm pkt ORAL SCH (20:12)
[2016-10-04] VITALS: BP 97/59
--- NOTE | 2016-10-04 02:00 | Progress Note ---
DATE: 10/02/2016 SUBJECTIVE: The patient presents with decreased appetite and anxiety. Mood is depressed. He has decreased energy and weakness. Compliant with medication. No behavior issues. MENTAL STATUS EXAMINATION: And and oriented x3. Mood is anxious. Affect is constricted. Congruent mood. Thought process is concrete. Thought content, no suicidal or homicidal ideation. ASSESSMENT: 1. Alcohol dependence. 2. Depression. 3. Anxiety. PLAN: 1. The patient will be continued on Seroquel. 2. We will continue the Valium as needed. 3. We will continue to follow and readjust the medications. Ania Edwards M.D. DR: VILMA JOB#: [id number] CC:
[2016-10-04 04:00] VITALS: BP 109/49
[2016-10-04 07:17] LABS: MEAN CORPUSCULAR HEMOGLOBIN 31.6 PG (27.0-31.0); MEAN CORPUSCULAR HGB CONC 35.5 G/DL (32.0-36.0); MEAN CORPUSCULAR VOLUME 89 FL (80-99); PLATELET COUNT 48 K/UL (150-450); RED BLOOD COUNT 4.42 M/UL (4.70-6.10); RED CELL DISTRIBUTION WIDTH 13.2 % (11.6-14.8); WHITE BLOOD COUNT 8.2 K/UL (4.8-10.8)
[2016-10-04 07:30] LABS: ANION GAP 13 (5-15); CALCIUM 8.7 mg/dL (8.6-10.2); CARBON DIOXIDE 26 mEQ/L (20-30); CHLORIDE 98 mEQ/L (98-107); CREATININE 0.6 mg/dL (0.7-1.2); GLOMERULAR FILTRATION RATE > 60 mL/min (>60); HEMOLYSIS 6; POTASSIUM 3.7 mEQ/L (3.4-4.9); SODIUM 137 mEQ/L (135-145)
--- NOTE | 2016-10-04 07:36 | General Progress Note ---
Assessment/Plan Problem List: (1) Cholelithiasis ICD Codes: K80.20 - Calculus of gallbladder without cholecystitis without obstruction SNOMED: 664571778 (2) Cirrhosis ICD Codes: K74.60 - Unspecified cirrhosis of liver SNOMED: 16125164 (3) thrombocytpenia (4) Elevated transaminase level ICD Codes: R74.0 - Nonspecific elevation of levels of transaminase and lactic acid dehydrogenase [LDH] SNOMED: 276657518, 954461805 (5) Leukopenia ICD Codes: D72.819 - Decreased white blood cell count, unspecified SNOMED: 84073778, 679654100 (6) History of ETOH abuse ICD Codes: Z87.898 - Personal history of other specified conditions SNOMED: 485423222 Assessment/Plan per patient last colonoscopy 6 months ago tolerating diet ok to dc GI stand point fu out patient Subjective ROS Limited/Unobtainable: Yes Allergies: Coded Allergies: No Known Allergies (Unverified , 10/02/16) Subjective no event Objective Last 24 Hour Vital Signs Date Time Temp Pulse Resp B/P Pulse Ox O2 Delivery O2 Flow Rate FiO2 10/04/16 04:00 97.9 57 18 109/49 96 Room Air 10/04/16 00:00 97.9 60 18 97/59 97 Room Air 10/03/16 20:00 98.2 64 18 108/62 95 Room Air 10/03/16 15:49 98.2 67 16 106/61 10/03/16 11:36 97.7 73 14 126/77 95 Room Air 10/03/16 08:02 97.0 74 16 139/85 98 Room Air Intake and Output 10/03/16 10/04/16 19:00 07:00 Intake Total 2000 ml Output Total 1800 ml Balance 200 ml Intake Oral 2000 ml Output Urine Total 1800 ml # Voids 3 3 # Bowel Movements 3 Laboratory Tests 10/04/16 04:45: White Blood Count [Pending], Red Blood Count [Pending], Hemoglobin [Pending], Hematocrit [Pending], Mean Corpuscular Volume [Pending], Mean Corpuscular Hemoglobin [Pending], Mean Corpuscular Hemoglobin Concent [Pending], Red Cell Distribution Width [Pending], Platelet Count [Pending], Mean Platelet Volume [ Pending], Neutrophils (%) (Auto) [Pending], Lymphocytes (%) (Auto) [Pending], Monocytes (%) (Auto) [Pending], Eosinophils (%) (Auto) [Pending], Basophils (%) (Auto) [Pending], Sodium Level 137, Potassium Level 3.7, Chloride Level 98, Carbon Dioxide Level 26, Anion Gap 13, Blood Urea Nitrogen 15, Creatinine 0.6L, Estimat Glomerular Filtration Rate > 60, Glucose Level 81, Calcium Level 8.7 Procedure: US ABD Complete Indication: Abnormal liver function tests and renal function tests. Elevated lipase Technique: Baker-scale and duplex images of the upper abdomen were obtained Comparison: None Findings: Gallbladder demonstrates gallstones. No gallbladder wall thickening or pericholecystic fluid . Sonographic Garay's sign is negative. Common bile duct measures 4 mm in diameter. No intrahepatic biliary ductal dilatation. Liver demonstrates increased and coarsened echogenicity. It also demonstrates surface nodularity and irregularity. A few small cysts are seen within the right hepatic lobe. Portal vein and hepatic veins are patent. Pancreas is obscured by bowel gas. The spleen is enlarged, measuring 16 cm long axis dimension Left kidney measures 13 cm in length. Right kidney measures 10.5 cm length. Both kidneys demonstrate normal echogenicity. There is no hydronephrosis. There is a 12 mm lower pole cysts. There also appears to be a calcification within the lower pole renal sinus measuring approximately 9 mm diameter. Abdominal aorta is partially obscured by bowel gas, visualized portions are non-aneurysmal . Impression: Cholelithiasis. Negative for dilated ducts Coarsened hepatic echogenicity, surface irregularity and nodularity, consistent with cirrhosis Splenomegaly, suspect portal hypertension as etiology Incidental finding small hepatic cysts Probable nonobstructive left lower pole intrarenal calculus Incidental finding small left renal cyst Note inability to visualize the pancreas and distal abdominal aorta Dictated By: MICHAEL TOBIAS M.D. Electronically Signed By: MICHAEL TOBIAS M.D. Signed Date/Time 10/03/16 [id number] CC: Andie Feliz MD; Archana Mak N.PDaniela Height (Feet): 5 Height (Inches): 8.00 Weight (Pounds): 175 General Appearance: alert EENT: normal ENT inspection Neck: supple Cardiovascular: normal rate Respiratory/Chest: lungs clear Abdomen: normal bowel sounds, non tender, soft Extremities: non-tender RADHA RODRIGUEZ Oct 04, 2016 07:36
[2016-10-04 07:43] VITALS: BP 132/84
[2016-10-04] MEDS: Docusate 100mg cap ORAL SCH ×2 (08:24→17:25)
[2016-10-04] MEDS: Pantoprazole Inj IVP SCH (09:43)
[2016-10-04 10:04] LABS: NEUTROPHILS % (MANUAL) 68 % (45-75); TOTAL CELLS COUNTED 100
[2016-10-04 10:06] LABS: BAND NEUTROPHILS % (MANUAL) 0 % (0-8); BASOPHILS % (MANUAL) 0 % (0-2); EOSINOPHILS % (MANUAL) 4 % (0-3); LYMPHOCYTES % (MANUAL) 20 % (20-45); PLATELET ESTIMATE DECREASED; PLATELET MORPHOLOGY NORMAL
--- NOTE | 2016-10-04 11:08 | General Progress Note ---
Assessment/Plan Problem List: (1) thrombocytpenia (2) Cirrhosis ICD Codes: K74.60 - Unspecified cirrhosis of liver SNOMED: 95642986 (3) History of ETOH abuse ICD Codes: Z87.898 - Personal history of other specified conditions SNOMED: 673627991 (4) Leukopenia ICD Codes: D72.819 - Decreased white blood cell count, unspecified SNOMED: 96398146, 608930897 (5) Elevated transaminase level ICD Codes: R74.0 - Nonspecific elevation of levels of transaminase and lactic acid dehydrogenase [LDH] SNOMED: 962844191, 415731014 Status: progressing Assessment/Plan afebrile vitals stable cirrhosis low platelet and low wbx could be secondary t ocirrhosis Subjective ROS Limited/Unobtainable: Yes Allergies: Coded Allergies: No Known Allergies (Unverified , 10/02/16) Objective Last 24 Hour Vital Signs Date Time Temp Pulse Resp B/P Pulse Ox O2 Delivery O2 Flow Rate FiO2 10/04/16 07:43 98.6 71 14 132/84 98 Room Air 10/04/16 04:00 97.9 57 18 109/49 96 Room Air 10/04/16 00:00 97.9 60 18 97/59 97 Room Air 10/03/16 20:00 98.2 64 18 108/62 95 Room Air 10/03/16 15:49 98.2 67 16 106/61 10/03/16 11:36 97.7 73 14 126/77 95 Room Air Intake and Output 10/03/16 10/04/16 19:00 07:00 Intake Total 2000 ml Output Total 1800 ml Balance 200 ml Intake Oral 2000 ml Output Urine Total 1800 ml # Voids 3 3 # Bowel Movements 3 Laboratory Tests 10/04/16 04:45: White Blood Count 8.2, Red Blood Count 4.42L, Hemoglobin 13.9L, Hematocrit 39.3L , Mean Corpuscular Volume 89, Mean Corpuscular Hemoglobin 31.6H, Mean Corpuscular Hemoglobin Concent 35.5, Red Cell Distribution Width 13.2, Platelet Count 48L, Mean Platelet Volume 7.0, Neutrophils (%) (Auto) , Lymphocytes (%) ( Auto) , Monocytes (%) (Auto) , Eosinophils (%) (Auto) , Basophils (%) (Auto) , Differential Total Cells Counted 100, Neutrophils % (Manual) 68, Lymphocytes % ( Manual) 20, Monocytes % (Manual) 8, Eosinophils % (Manual) 4H, Basophils % ( Manual) 0, Band Neutrophils 0, Platelet Estimate DecreasedL, Platelet Morphology Normal, Red Blood Cell Morphology Normal, Sodium Level 137, Potassium Level 3.7, Chloride Level 98, Carbon Dioxide Level 26, Anion Gap 13, Blood Urea Nitrogen 15, Creatinine 0.6L, Estimat Glomerular Filtration Rate > 60 , Glucose Level 81, Calcium Level 8.7 Height (Feet): 5 Height (Inches): 8.00 Weight (Pounds): 175 Neck: supple Cardiovascular: normal rate Respiratory/Chest: lungs clear Abdomen: soft Andie Feliz MD Oct 04, 2016 11:08
[2016-10-04 11:12] VITALS: BP 121/77
[2016-10-04 16:00] VITALS: BP 121/72
--- NOTE | 2016-10-04 16:06 | General Progress Note ---
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 Oct 02, 2016 22:57 Subjective Constitutional: Reports: no symptoms HEENT: Reports: no symptoms Cardiovascular: Reports: no symptoms Respiratory: Reports: no symptoms Gastrointestinal/Abdominal: Reports: no symptoms Genitourinary: Reports: no symptoms Neurologic/Psychiatric: Reports: no symptoms Endocrine: Reports: no symptoms Hematologic/Lymphatic: Reports: no symptoms Allergies: Coded Allergies: No Known Allergies (Unverified , 10/02/16) Objective Last 24 Hour Vital Signs Date Time Temp Pulse Resp B/P Pulse Ox O2 Delivery O2 Flow Rate FiO2 10/04/16 16:00 98.1 61 15 121/72 97 Room Air 10/04/16 11:12 97.7 67 15 121/77 94 Room Air 10/04/16 07:43 98.6 71 14 132/84 98 Room Air 10/04/16 04:00 97.9 57 18 109/49 96 Room Air 10/04/16 00:00 97.9 60 18 97/59 97 Room Air 10/03/16 20:00 98.2 64 18 108/62 95 Room Air Intake and Output 10/03/16 10/04/16 19:00 07:00 Intake Total 2000 ml Output Total 1800 ml Balance 200 ml Intake Oral 2000 ml Output Urine Total 1800 ml # Voids 3 3 # Bowel Movements 3 Laboratory Tests 10/04/16 04:45: White Blood Count 8.2, Red Blood Count 4.42L, Hemoglobin 13.9L, Hematocrit 39.3L , Mean Corpuscular Volume 89, Mean Corpuscular Hemoglobin 31.6H, Mean Corpuscular Hemoglobin Concent 35.5, Red Cell Distribution Width 13.2, Platelet Count 48L, Mean Platelet Volume 7.0, Neutrophils (%) (Auto) , Lymphocytes (%) ( Auto) , Monocytes (%) (Auto) , Eosinophils (%) (Auto) , Basophils (%) (Auto) , Differential Total Cells Counted 100, Neutrophils % (Manual) 68, Lymphocytes % ( Manual) 20, Monocytes % (Manual) 8, Eosinophils % (Manual) 4H, Basophils % ( Manual) 0, Band Neutrophils 0, Platelet Estimate DecreasedL, Platelet Morphology Normal, Red Blood Cell Morphology Normal, Sodium Level 137, Potassium Level 3.7, Chloride Level 98, Carbon Dioxide Level 26, Anion Gap 13, Blood Urea Nitrogen 15, Creatinine 0.6L, Estimat Glomerular Filtration Rate > 60 , Glucose Level 81, Calcium Level 8.7 Height (Feet): 5 Height (Inches): 8.00 Weight (Pounds): 175 General Appearance: no apparent distress EENT: TMs normal Neck: supple Cardiovascular: normal rate Respiratory/Chest: lungs clear Abdomen: soft Pelvis: no masses Extremities: non-tender Edema: no edema noted Arm (L), no edema noted Arm (R), no edema noted Leg (L), no edema noted Leg (R), no edema noted Pedal (L), no edema noted Pedal (R), no edema noted Generalized Neurologic: alert Skin: warm/dry Lymphatic: normal anterior cervical (L), normal anterior cervical (R), normal axillary (L), normal axillary (R), normal inguinal (L), normal inguinal (R), normal other, normal posterior cervical (L), normal posterior cervical (R), normal submandibular (L), normal submandibular (R), normal supraclavicular (L), normal supraclavicular (R) LILLIE YUAN Oct 04, 2016 16:06
[2016-10-04 20:00] VITALS: BP 121/70
--- NOTE | 2016-10-04 20:22 | General Progress Note ---
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, have given neupogen on 10/02/16, monitor, on abx as needed # Leukopenia from above due to hepatitis C # Thrombocytopenia cirrhosis/splenic sequestration # hx of ETOH abuse # Hep C outpatient rx # Transaminitis # Weakness due to above # Schizophrenia # Depression # Appreciate consultation Subjective Date patient seen: Oct 03, 2016 Constitutional: Reports: no symptoms HEENT: Reports: no symptoms Cardiovascular: Reports: no symptoms Respiratory: Reports: no symptoms Gastrointestinal/Abdominal: Reports: no symptoms Genitourinary: Reports: no symptoms Neurologic/Psychiatric: Reports: tremors Hematologic/Lymphatic: Reports: no symptoms Allergies: Coded Allergies: No Known Allergies (Unverified , 10/02/16) Subjective stable, no events or fevers reported Objective Last 24 Hour Vital Signs Date Time Temp Pulse Resp B/P Pulse Ox O2 Delivery O2 Flow Rate FiO2 10/04/16 16:00 98.1 61 15 121/72 97 Room Air 10/04/16 11:12 97.7 67 15 121/77 94 Room Air 10/04/16 07:43 98.6 71 14 132/84 98 Room Air 10/04/16 04:00 97.9 57 18 109/49 96 Room Air 10/04/16 00:00 97.9 60 18 97/59 97 Room Air Intake and Output 10/03/16 10/04/16 19:00 07:00 Intake Total 2000 ml Output Total 1800 ml Balance 200 ml Intake Oral 2000 ml Output Urine Total 1800 ml # Voids 3 3 # Bowel Movements 3 Laboratory Tests 10/04/16 04:45: White Blood Count 8.2, Red Blood Count 4.42L, Hemoglobin 13.9L, Hematocrit 39.3L , Mean Corpuscular Volume 89, Mean Corpuscular Hemoglobin 31.6H, Mean Corpuscular Hemoglobin Concent 35.5, Red Cell Distribution Width 13.2, Platelet Count 48L, Mean Platelet Volume 7.0, Neutrophils (%) (Auto) , Lymphocytes (%) ( Auto) , Monocytes (%) (Auto) , Eosinophils (%) (Auto) , Basophils (%) (Auto) , Differential Total Cells Counted 100, Neutrophils % (Manual) 68, Lymphocytes % ( Manual) 20, Monocytes % (Manual) 8, Eosinophils % (Manual) 4H, Basophils % ( Manual) 0, Band Neutrophils 0, Platelet Estimate DecreasedL, Platelet Morphology Normal, Red Blood Cell Morphology Normal, Sodium Level 137, Potassium Level 3.7, Chloride Level 98, Carbon Dioxide Level 26, Anion Gap 13, Blood Urea Nitrogen 15, Creatinine 0.6L, Estimat Glomerular Filtration Rate > 60 , Glucose Level 81, Calcium Level 8.7 Height (Feet): 5 Height (Inches): 8.00 Weight (Pounds): 175 General Appearance: no apparent distress EENT: TMs normal Neck: supple Cardiovascular: regular rhythm Respiratory/Chest: lungs clear Abdomen: soft Pelvis: speculum exam normal Extremities: non-tender Edema: 1+ Leg (L), 1+ Leg (R) Edema: mild edema Neurologic: no motor/sensory deficits Skin: warm/dry Juan Carlos Guadalupe Oct 04, 2016 20:21
[2016-10-04] MEDS: Miralax 17gm pkt ORAL SCH (20:35)
[2016-10-05] VITALS: BP 114/70
[2016-10-05 04:00] VITALS: BP 124/68
[2016-10-05 08:00] VITALS: BP 107/54
--- NOTE | 2016-10-05 08:18 | General Progress Note ---
Assessment/Plan Problem List: (1) Cholelithiasis ICD Codes: K80.20 - Calculus of gallbladder without cholecystitis without obstruction SNOMED: 025861105 (2) Cirrhosis ICD Codes: K74.60 - Unspecified cirrhosis of liver SNOMED: 95256923 (3) thrombocytpenia (4) Elevated transaminase level ICD Codes: R74.0 - Nonspecific elevation of levels of transaminase and lactic acid dehydrogenase [LDH] SNOMED: 898204743, 454181268 (5) Leukopenia ICD Codes: D72.819 - Decreased white blood cell count, unspecified SNOMED: 51945585, 501686470 (6) History of ETOH abuse ICD Codes: Z87.898 - Personal history of other specified conditions SNOMED: 621537027 (7) Hepatitis C ICD Codes: B19.20 - Unspecified viral hepatitis C without hepatic coma SNOMED: 45821343 Assessment/Plan per patient last colonoscopy 6 months ago tolerating diet out patient fu for hep C fu out patient Subjective ROS Limited/Unobtainable: Yes Allergies: Coded Allergies: No Known Allergies (Unverified , 10/02/16) Subjective no event Objective Last 24 Hour Vital Signs Date Time Temp Pulse Resp B/P Pulse Ox O2 Delivery O2 Flow Rate FiO2 10/05/16 04:00 97.5 60 20 124/68 96 Room Air 10/05/16 00:00 98.2 62 20 114/70 95 Room Air 10/04/16 20:00 98.1 61 20 121/70 97 Room Air 10/04/16 16:00 98.1 61 15 121/72 97 Room Air 10/04/16 11:12 97.7 67 15 121/77 94 Room Air Intake and Output 10/04/16 10/05/16 19:00 07:00 Intake Total 3000 ml 500 ml Output Total 2500 ml 1200 ml Balance 500 ml -700 ml Intake Oral 3000 ml 500 ml Output Urine Total 2500 ml 1200 ml # Bowel Movements 1 Height (Feet): 5 Height (Inches): 8.00 Weight (Pounds): 175 General Appearance: alert EENT: normal ENT inspection Neck: supple Cardiovascular: normal rate Respiratory/Chest: lungs clear Abdomen: normal bowel sounds, non tender, soft Extremities: non-tender RADHA RODRIGUEZ Oct 05, 2016 08:18
[2016-10-05] MEDS: Docusate 100mg cap ORAL SCH ×2 (08:35→18:17)
[2016-10-05] MEDS: Pantoprazole Inj IVP SCH (09:24)
[2016-10-05 11:59] VITALS: BP 106/65
[2016-10-05 16:00] VITALS: BP 102/55
[2016-10-05 19:59] VITALS: BP 113/72
[2016-10-05] MEDS: Miralax 17gm pkt ORAL SCH (20:21)
--- NOTE | 2016-10-05 22:28 | Cardiology Report ---
APPROVED REPORT EKG Measurement Heart [id number] CO 210P29 [id number] Sinus rhythm with 1st degree AV block Otherwise normal ECG
--- NOTE | 2016-10-05 23:20 | General Progress Note ---
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, have given neupogen on 10/02/16, monitor, on abx as needed, goal ANC >1000 # Leukopenia from above due to hepatitis C # Thrombocytopenia cirrhosis/splenic sequestration # hx of ETOH abuse # Hep C outpatient rx # Transaminitis # Weakness due to above # Schizophrenia # Depression # Appreciate consultation Subjective Constitutional: Reports: no symptoms HEENT: Reports: no symptoms Cardiovascular: Reports: no symptoms Respiratory: Reports: no symptoms Gastrointestinal/Abdominal: Reports: poor appetite Genitourinary: Reports: no symptoms Neurologic/Psychiatric: Reports: no symptoms Endocrine: Reports: no symptoms Hematologic/Lymphatic: Reports: anemia Allergies: Coded Allergies: No Known Allergies (Unverified , 10/02/16) Subjective stable, no events or fevers reported Objective Last 24 Hour Vital Signs Date Time Temp Pulse Resp B/P Pulse Ox O2 Delivery O2 Flow Rate FiO2 10/05/16 19:59 98.5 62 18 113/72 96 Room Air 10/05/16 16:00 99.0 53 19 102/55 95 Room Air 10/05/16 11:59 97.9 62 19 106/65 96 Room Air 10/05/16 08:00 97.5 62 18 107/54 97 Room Air 10/05/16 04:00 97.5 60 20 124/68 96 Room Air 10/05/16 00:00 98.2 62 20 114/70 95 Room Air Intake and Output 10/04/16 10/05/16 19:00 07:00 Intake Total 3000 ml 500 ml Output Total 2500 ml 1200 ml Balance 500 ml -700 ml Intake Oral 3000 ml 500 ml Output Urine Total 2500 ml 1200 ml # Bowel Movements 1 Height (Feet): 5 Height (Inches): 8.00 Weight (Pounds): 175 General Appearance: alert EENT: TMs normal Neck: supple Cardiovascular: regular rhythm Respiratory/Chest: lungs clear Abdomen: non tender Extremities: non-tender Edema: 1+ Leg (L), 1+ Leg (R) Edema: mild edema Neurologic: eyeglass lens grinder II-XII grossly normal Skin: warm/dry Juan Carlos Guadalupe Oct 05, 2016 23:20
[2016-10-06] VITALS: BP 109/74
[2016-10-06 04:00] VITALS: BP 108/71
--- NOTE | 2016-10-06 06:45 | Progress Note ---
SUBJECTIVE: The patient has no vomiting and no diarrhea. No fever or chills. No known acute events. He is hemodynamically stable. OBJECTIVE: CHEST: Clear to auscultation. CARDIOVASCULAR: Regular rate and rhythm. GASTROINTESTINAL: Soft. Positive bowel sounds. ASSESSMENT: 1. Cirrhosis. 2. Thrombocytopenia. 3. Leukopenia, most likely reason for leukopenia and thrombocytopenia is due to cirrhosis. PLAN: We will discharge the patient to the facility in the morning. Monitor for breathing. Currently, the patient has not had any bleeding today, hemodynamically stable. The patient is also a psychiatric patient and has schizophrenia. Andie Feliz M.D. DR: MONIQUE JOB#: [id number] CC:
[2016-10-06 08:05] VITALS: BP 119/67
[2016-10-06] MEDS: Docusate 100mg cap ORAL SCH ×2 (08:36→17:09)
[2016-10-06] MEDS: Pantoprazole Inj IVP SCH (09:26)
--- NOTE | 2016-10-06 10:29 | GI Progress Note ---
Assessment/Plan Problems: (1) Elevated transaminase level ICD Codes: R74.0 - Nonspecific elevation of levels of transaminase and lactic acid dehydrogenase [LDH] SNOMED: 541717161, 437880391 (2) Leukopenia ICD Codes: D72.819 - Decreased white blood cell count, unspecified SNOMED: 30574603, 465759966 (3) History of ETOH abuse ICD Codes: Z87.898 - Personal history of other specified conditions SNOMED: 111889079 (4) Hepatitis C ICD Codes: B19.20 - Unspecified viral hepatitis C without hepatic coma SNOMED: 10909906 (5) Cirrhosis ICD Codes: K74.60 - Unspecified cirrhosis of liver SNOMED: 41230702 Status: stable Status Narrative Discussed with Dr. Ingram. Assessment/Plan regular diet, tolerating per patient last colonoscopy 6 months ago out patient fu for hep C fu out patient Subjective Gastrointestinal/Abdominal: Reports: no symptoms Objective Last 24 Hour Vital Signs Date Time Temp Pulse Resp B/P Pulse Ox O2 Delivery O2 Flow Rate FiO2 10/06/16 08:05 97.7 59 16 119/67 97 Room Air 10/06/16 04:00 98.0 60 18 108/71 95 Room Air 10/06/16 00:00 97.7 60 18 109/74 95 Room Air 10/05/16 19:59 98.5 62 18 113/72 96 Room Air 10/05/16 16:00 99.0 53 19 102/55 95 Room Air 10/05/16 11:59 97.9 62 19 106/65 96 Room Air Intake and Output 10/05/16 10/06/16 18:59 06:59 Intake Total 2400 ml Balance 2400 ml Intake Oral 2400 ml # Voids 8 Height (Feet): 5 Height (Inches): 8.00 Weight (Pounds): 175 General Appearance: no apparent distress, alert Cardiovascular: normal rate Respiratory/Chest: normal breath sounds, no respiratory distress Abdominal Exam: normal bowel sounds, non tender, soft Archana Mak N.P. Oct 06, 2016 10:29
[2016-10-06 12:00] VITALS: BP 116/72
--- NOTE | 2016-10-06 13:01 | General Progress Note ---
Assessment/Plan Problem List: (1) thrombocytpenia (2) Cirrhosis ICD Codes: K74.60 - Unspecified cirrhosis of liver SNOMED: 94362530 (3) History of ETOH abuse ICD Codes: Z87.898 - Personal history of other specified conditions SNOMED: 265885801 (4) Leukopenia ICD Codes: D72.819 - Decreased white blood cell count, unspecified SNOMED: 01600997, 630869847 (5) Elevated transaminase level ICD Codes: R74.0 - Nonspecific elevation of levels of transaminase and lactic acid dehydrogenase [LDH] SNOMED: 261761417, 577050163 Status: progressing Assessment/Plan dc back to snf see dc summary for details Subjective ROS Limited/Unobtainable: Yes Allergies: Coded Allergies: No Known Allergies (Unverified , 10/02/16) Objective Last 24 Hour Vital Signs Date Time Temp Pulse Resp B/P Pulse Ox O2 Delivery O2 Flow Rate FiO2 10/06/16 12:00 97.7 63 16 116/72 97 Room Air 10/06/16 08:05 97.7 59 16 119/67 97 Room Air 10/06/16 04:00 98.0 60 18 108/71 95 Room Air 10/06/16 00:00 97.7 60 18 109/74 95 Room Air 10/05/16 19:59 98.5 62 18 113/72 96 Room Air 10/05/16 16:00 99.0 53 19 102/55 95 Room Air Intake and Output 10/05/16 10/06/16 19:00 07:00 Intake Total 2400 ml Balance 2400 ml Intake Oral 2400 ml # Voids 8 Height (Feet): 5 Height (Inches): 8.00 Weight (Pounds): 175 General Appearance: confused Cardiovascular: normal rate Respiratory/Chest: lungs clear Andie Feliz MD Oct 06, 2016 13:01
[2016-10-06 16:06] VITALS: BP 119/74
[2016-10-06 20:00] VITALS: BP 117/78
[2016-10-06] MEDS: Miralax 17gm pkt ORAL SCH (20:15)
[2016-10-07] VITALS: BP 103/54
--- NOTE | 2016-10-07 02:00 | Progress Note ---
DATE: 10/05/2016 SUBJECTIVE: The patient was found in bed, withdrawn, isolative, and minimal interaction. He is a poor historian and was not engaged during the evaluation. The patient has been compliant with medications. Sleep and appetite is adequate. MENTAL STATUS EXAMINATION: Alert and oriented to time, place, person, and situation. Mood is depressed. Affect is constricted, congruent with mood. Thought process is concrete. Thought content, no suicidal or homicidal ideation. ASSESSMENT AND PLAN: 1. Alcohol dependence. 2. Depression. 3. Anxiety. We will continue the Seroquel. 4. Provide the patient with supportive therapy and reality orientation. Ania Edwards M.D. DR: LUZ ELENA JOB#: [id number] CC:
--- NOTE | 2016-10-07 02:15 | Progress Note ---
DATE: 10/05/2016 SUBJECTIVE: The patient was lying in bed, asleep, arousable. Compliant with medication. No behavioral issues. Complaining of weakness and fatigue. No anxiety or agitation today. MENTAL STATUS EXAMINATION: The patient is alert and oriented to time, person, place, and situation. Mood is depressed. Affect is constricted, congruent with mood. Thought process is concrete. Thought content, no suicidal or homicidal ideation. ASSESSMENT: Major depressive disorder. PLAN: The patient will be continued with Seroquel. Provide the patient with supportive therapy and reality orientation. We will continue to follow and readjust the medications. Ania Edwards M.D. DR: KAREN JOB#: [id number] CC: MARK
[2016-10-07 04:00] VITALS: BP 123/66
[2016-10-07 08:00] VITALS: BP 105/55
[2016-10-07] MEDS: Pantoprazole Inj IVP SCH (08:18)
[2016-10-07] MEDS: Docusate 100mg cap ORAL SCH (08:18)
--- NOTE | 2016-10-07 09:58 | General Progress Note ---
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, have given neupogen on 10/02/16, monitor, on abx as needed, goal ANC >1000 # Leukopenia from above due to hepatitis C # Thrombocytopenia cirrhosis/splenic sequestration # hx of ETOH abuse # Hep C outpatient rx # Transaminitis # Weakness due to above # Schizophrenia # Depression # Appreciate consultation Subjective Date patient seen: Oct 06, 2016 Constitutional: Reports: no symptoms HEENT: Reports: no symptoms Cardiovascular: Reports: no symptoms Respiratory: Reports: no symptoms Gastrointestinal/Abdominal: Reports: no symptoms Genitourinary: Reports: no symptoms Neurologic/Psychiatric: Reports: no symptoms Endocrine: Reports: no symptoms Hematologic/Lymphatic: Reports: no symptoms Allergies: Coded Allergies: No Known Allergies (Unverified , 10/02/16) Subjective comfortable, stable, no events or fevers reported Objective Last 24 Hour Vital Signs Date Time Temp Pulse Resp B/P Pulse Ox O2 Delivery O2 Flow Rate FiO2 10/07/16 08:00 97.2 61 20 105/55 96 Room Air 10/07/16 04:00 97.7 59 20 123/66 95 Room Air 10/07/16 00:00 98.1 54 20 103/54 97 Room Air 10/06/16 20:00 98.2 64 20 117/78 95 Room Air 10/06/16 16:06 98.4 65 18 119/74 95 Room Air 10/06/16 12:00 97.7 63 16 116/72 97 Room Air Intake and Output 10/06/16 10/07/16 19:00 07:00 Intake Total 720 ml Output Total 1200 ml 1600 ml Balance -480 ml -1600 ml Intake Oral 720 ml Output Urine Total 1200 ml 1600 ml # Voids 1 Height (Feet): 5 Height (Inches): 8.00 Weight (Pounds): 175 General Appearance: no apparent distress EENT: TMs normal Neck: non-tender Cardiovascular: normal rate Respiratory/Chest: normal breath sounds Abdomen: non tender Extremities: non-tender Edema: no edema noted Leg (L), no edema noted Leg (R), no edema noted Pedal (L) , no edema noted Pedal (R) Neurologic: biostatistician II-XII grossly normal Skin: warm/dry Juan Carlos Guadalupe Oct 07, 2016 09:58
--- NOTE | 2016-10-07 09:59 | General Progress Note ---
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, have given neupogen on 10/02/16, monitor, on abx as needed, goal ANC >1000 # Leukopenia from above due to hepatitis C # Thrombocytopenia cirrhosis/splenic sequestration # hx of ETOH abuse # Hep C outpatient rx # Transaminitis # Weakness due to above # Schizophrenia # Depression # Appreciate consultation Subjective Constitutional: Reports: no symptoms HEENT: Reports: no symptoms Cardiovascular: Reports: no symptoms Respiratory: Reports: no symptoms Gastrointestinal/Abdominal: Reports: no symptoms Genitourinary: Reports: no symptoms Neurologic/Psychiatric: Reports: no symptoms Endocrine: Reports: no symptoms Hematologic/Lymphatic: Reports: no symptoms Allergies: Coded Allergies: No Known Allergies (Unverified , 10/02/16) Subjective comfortable, stable, no events or fevers reported, his DC is being planned Objective Last 24 Hour Vital Signs Date Time Temp Pulse Resp B/P Pulse Ox O2 Delivery O2 Flow Rate FiO2 10/07/16 08:00 97.2 61 20 105/55 96 Room Air 10/07/16 04:00 97.7 59 20 123/66 95 Room Air 10/07/16 00:00 98.1 54 20 103/54 97 Room Air 10/06/16 20:00 98.2 64 20 117/78 95 Room Air 10/06/16 16:06 98.4 65 18 119/74 95 Room Air 10/06/16 12:00 97.7 63 16 116/72 97 Room Air Intake and Output 10/06/16 10/07/16 19:00 07:00 Intake Total 720 ml Output Total 1200 ml 1600 ml Balance -480 ml -1600 ml Intake Oral 720 ml Output Urine Total 1200 ml 1600 ml # Voids 1 Height (Feet): 5 Height (Inches): 8.00 Weight (Pounds): 175 General Appearance: no apparent distress EENT: normal ENT inspection Neck: normal alignment Cardiovascular: normal rate Respiratory/Chest: chest wall non-tender Abdomen: non tender Pelvis: normal external exam Extremities: non-tender Edema: no edema noted Leg (L), no edema noted Leg (R), no edema noted Pedal (L) , no edema noted Pedal (R) Neurologic: bean snipper II-XII grossly normal Skin: warm/dry Juan Carlos Guadalupe Oct 07, 2016 09:59
--- NOTE | 2016-10-07 14:44 | GI Progress Note ---
Assessment/Plan Problems: (1) Elevated transaminase level ICD Codes: R74.0 - Nonspecific elevation of levels of transaminase and lactic acid dehydrogenase [LDH] SNOMED: 313015482, 110097292 (2) Leukopenia ICD Codes: D72.819 - Decreased white blood cell count, unspecified SNOMED: 64530447, 086513673 (3) History of ETOH abuse ICD Codes: Z87.898 - Personal history of other specified conditions SNOMED: 677094596 (4) Hepatitis C ICD Codes: B19.20 - Unspecified viral hepatitis C without hepatic coma SNOMED: 98790893 (5) Cirrhosis ICD Codes: K74.60 - Unspecified cirrhosis of liver SNOMED: 04492483 Status: stable Status Narrative Discussed with Dr. Ingram. Assessment/Plan ok for DC per GI standpoint regular diet, tolerating per patient last colonoscopy 6 months ago out patient fu for hep C fu out patient Subjective Gastrointestinal/Abdominal: Reports: no symptoms Objective Last 24 Hour Vital Signs Date Time Temp Pulse Resp B/P Pulse Ox O2 Delivery O2 Flow Rate FiO2 10/07/16 08:00 97.2 61 20 105/55 96 Room Air 10/07/16 04:00 97.7 59 20 123/66 95 Room Air 10/07/16 00:00 98.1 54 20 103/54 97 Room Air 10/06/16 20:00 98.2 64 20 117/78 95 Room Air 10/06/16 16:06 98.4 65 18 119/74 95 Room Air Intake and Output 10/06/16 10/07/16 19:00 07:00 Intake Total 720 ml Output Total 1200 ml 1600 ml Balance -480 ml -1600 ml Intake Oral 720 ml Output Urine Total 1200 ml 1600 ml # Voids 1 Height (Feet): 5 Height (Inches): 8.00 Weight (Pounds): 175 General Appearance: no apparent distress, alert Cardiovascular: normal rate Respiratory/Chest: normal breath sounds, no respiratory distress Abdominal Exam: normal bowel sounds, non tender, soft Archana Mak N.PDaniela Oct 07, 2016 14:44
--- NOTE | 2016-10-08 20:09 | Discharge Summary ---
Discharge Summary Hospital Course Date of Admission Oct 02, 2016 at 02:04 Date of Discharge Oct 07, 2016 at 11:43 Admitting Diagnosis LEUKOPENIA HPI Fareed Cisneros is a 60 year old male who was admitted on Oct 02, 2016 at 02:04 for Leukopenia Hospital Course [id number] Discharge Discharge Disposition Patient was discharged to SNF/Subacute Facility(03) Discharge Diagnoses: Arleen Appiah NP Oct 08, 2016 20:09
--- NOTE | 2016-10-09 01:30 | Discharge Summary 2 SIG ---
DATE OF ADMISSION: 10/02/2016 DATE OF DISCHARGE: 10/07/2016 CONSULTANTS: 1. Pradeep Ingram M.D. 2. Cruz Ronquillo 3. Ania Edwards M.D. BRIEF HOSPITAL COURSE: The patient is a 60-year-old male, who presented to ED due to abnormal laboratories. Blood work at ED showed AST 74, ALT 49. Total bilirubin 1.7. Dr. Ingram was consulted. Abdominal ultrasound done showed cholelithiasis, negative for dilated ducts. The patient also had a history of splenomegaly, cirrhosis, and was seen by a relationship banker for evaluation of leukopenia and thrombocytopenia due to hepatitis C secondary to splenic sequestration and cirrhosis. WBC was 3.1. The patient was given Neupogen. He was also diagnosed with mood disorder and was started on thiamine, Seroquel, and fluoxetine. Valium was given p.r.n. The patient was tolerating diet. Hepatitis panel was positive for hepatitis C. He was advised outpatient followup. The patient was discharged back to SNF. FINAL DIAGNOSES: 1. Elevated liver transaminases. 2. Liver cirrhosis. 3. Hepatitis C. 4. 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 5. Leukopenia due to hepatitis C. 6. History of ETOH abuse. 7. Major depressive disorder. 8. Thrombocytopenia. Andie Feliz M.D. I have been assigned to dictate discharge summary on this account and I was not involved in the patient's management. Arleen Appiah N.P. DR: Salena JOB#: [id number] CC: MARK
--- NOTE | 2016-11-04 08:38 | Physician Query ---
PLEASE COMPLETE THE QUESTION IN RED BEFORE SIGNING Dear Dr. DHILLON Date: 11/04/2016 Med Admin/CDS Name: TRINIDAD JIMENEZ CCS Exercise your independent professional judgment when responding to the query. Questions asked do not imply a particular answer is desired or expected. We greatly appreciate your clarification on this issue. CLINICAL DOCUMENTATION STATES: BRIEF HOSPITAL COURSE: The patient is a 60-year-old male, who presented to ED due to abnormal laboratories. Blood work at ED showed AST 74, ALT 49. Total bilirubin 1.7. Dr. Ingram was consulted. Abdominal ultrasound done showed cholelithiasis, negative for dilated ducts. The patient also had a history of splenomegaly, cirrhosis, and was seen by a strike out machine operator for evaluation of leukopenia and thrombocytopenia due to hepatitis C secondary to splenic sequestration and cirrhosis CLINICAL FINDINGS SHOW: FINAL DIAGNOSES: 1. Elevated liver transaminases. 2. Liver cirrhosis. 3. Hepatitis C. 4. 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 5. Leukopenia due to hepatitis C. 6. History of ETOH abuse. 7. Major depressive disorder. 8. Thrombocytopenia. Please respond to the following question: Is there a diagnosis specific to these symptoms or values OF ELEVATED LIVER TRANSAMINASES? If so please state below. PHYSICIAN RESPONSE: Please also document in your Progress Notes and/or Discharge Summary and indicate if the condition was present on admission. PAMELA DHILLON M.D. DATE & TIME [facility]
--- NOTE | 2016-11-09 21:51 | Physician Query ---
PLEASE COMPLETE THE QUESTION IN RED BEFORE SIGNING Dear Dr. DHILLON Date: 11/09/2016 [employer] Sewing Machine Operator/CDS Name: TRINIDAD JIMENEZ CCS Exercise your independent professional judgment when responding to the query. Questions asked do not imply a particular answer is desired or expected. We greatly appreciate your clarification on this issue. CLINICAL DOCUMENTATION STATES: BRIEF HOSPITAL COURSE: The patient is a 60-year-old male, who presented to ED due to abnormal laboratories. Blood work at ED showed AST 74, ALT 49. Total bilirubin 1.7. Dr. Ingram was consulted. Abdominal ultrasound done showed cholelithiasis, negative for dilated ducts. The patient also had a history of splenomegaly, cirrhosis, and was seen by a digital advisor for evaluation of leukopenia and thrombocytopenia due to hepatitis C secondary to splenic sequestration and cirrhosis CLINICAL FINDINGS SHOW: FINAL DIAGNOSES: 1. Elevated liver transaminases. 2. Liver cirrhosis. 3. Hepatitis C. 4. 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 5. Leukopenia due to hepatitis C. 6. History of ETOH abuse. 7. Major depressive disorder. 8. Thrombocytopenia. Please respond to the following question: Is there a diagnosis specific to these symptoms or values OF ELEVATED LIVER TRANSAMINASES? If so please state below. PHYSICIAN RESPONSE: Please also document in your Progress Notes and/or Discharge Summary and indicate if the condition was present on admission. PAMELA DHILLON M.D. DATE & TIME [facility]
== END 2016-10-07 11:43 | disposition home or self-care (01) | DRG 433 ==
LOC: EDBD 01:10 → EMR 01:55 → 4E 02:04 → EDBEDREQ 02:43 → 4E 03:22
DX: K74.60 Unspecified cirrhosis of liver (principal); F10.239 Alcohol dependence with withdrawal, unspecified; D69.6 Thrombocytopenia, unspecified; B19.20 Unspecified viral hepatitis C without hepatic coma; R74.0 Nonspecific elevation of levels of transaminase and lactic acid dehydrogenase [LDH]; K80.20 Calculus of gallbladder without cholecystitis without obstruction; D72.819 Decreased white blood cell count, unspecified; F39 Unspecified mood [affective] disorder; F32.9 Major depressive disorder, single episode, unspecified; F20.9 Schizophrenia, unspecified; K21.9 Gastro-esophageal reflux disease without esophagitis; N40.0 Benign prostatic hyperplasia without lower urinary tract symptoms; F41.9 Anxiety disorder, unspecified; R16.1 Splenomegaly, not elsewhere classified
CPT/HCPCS: 36415; 71010; 76700; 80048; 80053; 81003; 82248; 82550; 82553; 83605; 83690; 85007; 85025; 85610; 85730; 86705; 86709; 86803; 87040; 87081; 87340; 93005